=== PATIENT | male | born 1935 | race Caucasian/White ===

== ENCOUNTER 2017-02-09 22:15 | Emergency (ER) | payer OTHER ==
[2017-02-09 22:52] LABS: BASOPHIL % 1.1 % (0-2); PLATELET COUNT 216 x10^3mcL (130-400); RED CELL DISTRIBUTION WIDTH 14.6 % (11.5-14.5)
[2017-02-09 23:05] LABS: CALCIUM 8.6 mg/dL (8.5-10.1); CARBON DIOXIDE 25.1 mmol/L (21-32); CHLORIDE SERUM 105 mmol/L (98-107); CREATININE SERUM 0.7 mg/dL (0.7-1.3); GLUCOSE SERUM 108 mg/dL (74-106); POTASSIUM SERUM 3.5 mmol/L (3.5-5.1); SODIUM SERUM 142 mmol/L (136-145)
[2017-02-09 23:10] LABS: ALBUMIN 3.8 g/dL (3.4-5.0); ALKALINE PHOSPHATASE 105 U/L (46-116); ALT/SGPT 16 U/L (16-63); AMYLASE 88 U/L (25-115); AST/SGOT 16 U/L (15-37); BILIRUBIN TOTAL 0.5 mg/dL (0.20-1.00); LIPASE 155 IU/L (73-393)
[2017-02-10 00:02] VITALS: BP 142/81
== END 2017-02-10 00:02 | disposition home or self-care (01) ==
LOC: ED 22:15
PROVIDERS: Emergency Medicine
DX: S92.511A Displaced fracture of proximal phalanx of right lesser toe(s), initial encounter for closed fracture (principal); R10.84 Generalized abdominal pain; M19.90 Unspecified osteoarthritis, unspecified site; N40.0 Benign prostatic hyperplasia without lower urinary tract symptoms; Z79.1 Long term (current) use of non-steroidal anti-inflammatories (NSAID); X58.XXXA Exposure to other specified factors, initial encounter; Y93.89 Activity, other specified; Y92.89 Other specified places as the place of occurrence of the external cause; Y99.8 Other external cause status
CPT/HCPCS: 36415; 83880; J1885

== ENCOUNTER 2019-09-20 08:21 | Observation (INO) | payer OTHER ==
[~2019-09-20] VITALS: Ht 180.3 cm; Wt 94.4 kg
[2019-09-20 10:00] VITALS: BP 147/66
[2019-09-20] MEDS ORDERED: TAMSULOSIN HCL0.4 MG PO (14:46)
[2019-09-20 17:20] VITALS: BP 120/67
[2019-09-20 17:47] VITALS: BP 116/72
[2019-09-20 21:15] VITALS: BP 141/70
[2019-09-21 06:04] LABS: BASOPHIL % 0.3 % (0-2); PLATELET COUNT 166 x10^3mcL (130-400); RED CELL DISTRIBUTION WIDTH 14.1 % (11.5-14.5)
[2019-09-21 06:25] LABS: CALCIUM 8.2 mg/dL (8.5-10.1); CARBON DIOXIDE 26.3 mmol/L (21-32); CHLORIDE SERUM 106 mmol/L (98-107); CREATININE SERUM 0.7 mg/dL (0.7-1.3); GLUCOSE SERUM 102 mg/dL (74-106); POTASSIUM SERUM 4.2 mmol/L (3.5-5.1); SODIUM SERUM 140 mmol/L (136-145)
[2019-09-21 06:36] VITALS: BP 112/47
[2019-09-21 09:00] VITALS: BP 139/73
[2019-09-21 09:44] VITALS: BP 112/47
== END 2019-09-21 11:41 | disposition home or self-care (01) ==
LOC: DS 08:21 → OR 10:30 → DS 12:00 → MU 14:44
PROVIDERS: ADMIT Orthopaedic Surgery
DX: M17.11 Unilateral primary osteoarthritis, right knee (principal)
CPT/HCPCS: 97116-GP; 97530-GP; G0378; J0690; J1170; J1885; J2270; J2274; J3490; J7030; Q0092